=== PATIENT | female | born 1960 | race Caucasian/White ===

== ENCOUNTER 2019-08-14 08:29 | Day surgery (SDC) | payer OTHER ==
[~2019-08-14] VITALS: Ht 172.7 cm; Wt 100.7 kg
[~2019-08-14 08:29] MED LIST: ASPI81CH PO; AZIT250 PO; CALCAVITD PO; CHOL10002 PO; DEXILANT60 MG PO; ESTR.1TPBW TOP; FISH1000 PO; Hair, Skin & N1 EACH; NEBI5 PO; PANT40 PO; PROM25 PO
--- NOTE | 2019-08-14 09:10 | NUR ---
08/14/19 0910 Purvi Will 1WRIST RIGHT HAND BLEW 2 HAND RIGHT GOOD
== END 2019-08-14 10:44 | disposition home or self-care (01) ==
LOC: ORSCSDS 08:29
PROVIDERS: Internal Medicine Gastroenterology
PROC: 0DBK8ZX Excision of Ascending Colon, Via Natural or Artificial Opening Endoscopic, Diagnostic (ICD-10-PCS; principal; 2019-08-14 09:45)
PROC: 0DBP8ZX Excision of Rectum, Via Natural or Artificial Opening Endoscopic, Diagnostic (ICD-10-PCS; principal; 2019-08-14 09:45)
DX: Z12.11 Encounter for screening for malignant neoplasm of colon (principal); Z86.010 Personal history of colon polyps; K57.30 Diverticulosis of large intestine without perforation or abscess without bleeding; D12.2 Benign neoplasm of ascending colon; K62.1 Rectal polyp; K76.0 Fatty (change of) liver, not elsewhere classified; K21.9 Gastro-esophageal reflux disease without esophagitis; E66.01 Morbid (severe) obesity due to excess calories; Z68.34 Body mass index [BMI] 34.0-34.9, adult; Z79.82 Long term (current) use of aspirin; Z79.899 Other long term (current) drug therapy
CPT/HCPCS: 88305; J2704; J7120

== ENCOUNTER 2020-01-27 17:12 | Emergency (ER) | payer OTHER ==
[~2020-01-27] VITALS: Ht 172.7 cm; Wt 103.9 kg
[2020-01-27] MEDS ORDERED: LORAZEPAM TAB 1MG (17:24)
[2020-01-27] MEDS ORDERED: PANTOPRAZOLE SO40 M2 PO (17:24)
[2020-01-27] MEDS ORDERED: ASPI325 PO (17:25)
[2020-01-27 17:50] LABS: BASOPHILS ABSOLUTE AUTO 0.04 K/mm3 (0.00-0.23); BASOPHILS PERCENT AUTO 0 % (0-2); EOSINOPHILS ABSOLUTE AUTO 0.21 K/mm3 (0.00-0.68); EOSINOPHILS PERCENT AUTO 2 % (0-6); Hematocrit 43.5 % (33.0-51.0); Hemoglobin 14.6 g/dL (11.5-16.0); IMMATURE GRAN ABSOLUTE AUTO 0.02 K/mm3 (0.00-0.10); IMMATURE GRAN PERCENT AUTO 0 % (0-1); LYMPHOCYTES ABSOLUTE AUTO 4.05 K/mm3 (0.84-5.20); LYMPHOCYTES PERCENT AUTO 37 % (21-46); MONOCYTES PERCENT AUTO 6 % (4-13); Mean Corpuscular HGB 29.4 pg (26.0-34.0); Mean Corpuscular HGB Conc 33.6 g/dL (31.5-36.5); Mean Corpuscular Volume 88 fL (80-100); Mean Platelet Volume 9.9 fL (9.1-12.4); NEUTROPHILS ABSOLUTE AUTO 5.95 K/mm3 (1.96-9.15); NEUTROPHILS PERCENT AUTO 55 % (41-73); Platelet Count 276 K/mm3 (150-400); RDW Coefficient Variation 12.8 % (11.7-14.2); Red Blood Cell Count 4.96 M/mm3 (3.80-5.20); White Blood Cell Count 10.87 K/mm3 (4.00-11.30)
[2020-01-27 18:20] LABS: Troponin I <0.015 ng/mL (0.000-0.040)
[2020-01-27 18:22] LABS: Alanine Aminotransfer (ALT/SGP 76 U/L (12-78); Alk Phos 90 U/L (50-136); Aspartate Aminotrans (AST/SGOT 54 U/L (12-37); Bilirubin, Total 1.5 mg/dL (0.1-1.0); Blood Urea Nitrogen 25 mg/dL (8-24); Bun/Creatinine Ratio 29.7 (12.0-20.0); CO2, Blood 23 mmol/L (21-32); Calcium, Blood 9.4 mg/dL (8.5-10.1); Creatinine, Blood 0.84 mg/dL (0.40-1.00); Globulin, Blood 4.2 g/dL (2.2-4.0); Glomerular Filtration Rate >60 (60-); Glucose, Blood 137 mg/dL (70-99); Total Protein, Blood 8.2 g/dL (6.4-8.2)
[2020-01-27 18:50] LABS: Anion Gap 10 mmol/L (6-16); Chloride, Blood 108 mmol/L (98-108); Potassium, Blood 3.9 mmol/L (3.5-5.5); Sodium, Blood 141 mmol/L (136-145)
== END 2020-01-27 19:25 | disposition home or self-care (01) ==
LOC: ER 17:12
PROVIDERS: Emergency Medicine
DX: F41.9 Anxiety disorder, unspecified (principal); R07.9 Chest pain, unspecified; I10 Essential (primary) hypertension; K21.9 Gastro-esophageal reflux disease without esophagitis; Z79.82 Long term (current) use of aspirin; G51.0 Bell's palsy
CPT/HCPCS: 71045; 80053; 83880; 84484; 85025; 85379; 93005; 93010; 96374; 99285-25; J2060

== ENCOUNTER 2022-06-06 11:52 | Day surgery (SDC) | payer OTHER ==
[~2022-06-06] VITALS: Ht 170.2 cm; Wt 93.6 kg
[~2022-06-06 11:52] MED LIST changes: +ASPI325 PO; +LORAZEPAM TAB 1MG; +PANTOPRAZOLE SO40 M2 PO
[2022-06-06] MEDS ORDERED: FISH OIL 1,2001 EAC7 (12:05)
[2022-06-06] MEDS ORDERED: MERIBIN5 MG (12:05)
[2022-06-06] MEDS ORDERED: Vitamin D400 UNI1 (12:05)
--- NOTE | 2022-06-06 12:34 | NUR ---
06/06/22 Miquel4 QUINN M[facility] TWO ATTTEMPTS AT IV. FIRST ATTEMPT BY MA IN R HAND UNABLE TO ADVANCE. SECOND ATTEMPT IN R AC BY FRANCISCA SUCESSFUL.
== END 2022-06-06 14:11 | disposition home or self-care (01) ==
LOC: ORSCSDS 11:52
PROVIDERS: Internal Medicine Gastroenterology
PROC: 0DBE8ZX Excision of Large Intestine, Via Natural or Artificial Opening Endoscopic, Diagnostic (ICD-10-PCS; principal; 2022-06-06 13:00)
PROC: 0DBK8ZX Excision of Ascending Colon, Via Natural or Artificial Opening Endoscopic, Diagnostic (ICD-10-PCS; principal; 2022-06-06 13:00)
PROC: 0DBL8ZX Excision of Transverse Colon, Via Natural or Artificial Opening Endoscopic, Diagnostic (ICD-10-PCS; principal; 2022-06-06 13:00)
DX: R19.4 Change in bowel habit (principal); K62.5 Hemorrhage of anus and rectum; Z86.010 Personal history of colon polyps; D12.3 Benign neoplasm of transverse colon; D12.2 Benign neoplasm of ascending colon; K64.8 Other hemorrhoids; K21.9 Gastro-esophageal reflux disease without esophagitis; K76.0 Fatty (change of) liver, not elsewhere classified; I10 Essential (primary) hypertension; Z79.899 Other long term (current) drug therapy; Z79.82 Long term (current) use of aspirin
CPT/HCPCS: 88305; J2704; J7120

== ENCOUNTER → 2022-08-30 | Outpatient (CLI) | payer OTHER ==
[~2022-08-30] MED LIST changes: +FISH OIL 1,2001 EAC7; +MERIBIN5 MG; +Vitamin D400 UNI1
== END | disposition home or self-care (01) ==
LOC: LAB SHORT 11:47
DX: D17.22 Benign lipomatous neoplasm of skin and subcutaneous tissue of left arm (principal)
CPT/HCPCS: 88304